=== PATIENT | female | born 1990 | race Caucasian/White ===

== ENCOUNTER → 2017-01-30 | Outpatient (CLI) | payer BC ==
[~2017-01-30] MED LIST: HYDR-4074 PO; ONDA4TAB4 PO
== END ==
LOC: LAB 15:14
PROVIDERS: ATTEND Obstetrics & Gynecology Reproductive Endocrinology
DX: Z32.00 Encounter for pregnancy test, result unknown (principal)
CPT/HCPCS: 36415; 84702

== ENCOUNTER 2017-03-26 18:01 | Emergency (ER) | payer BC ==
[~2017-03-26] VITALS: Ht 162.6 cm; Wt 67.2 kg
--- OUTSIDE RECORDS SUMMARY | 2017-03-26 18:04 | XMS REPORT ---
Author Author Patricio Mccallum Organization [employer] Address Unknown Phone Unavailable Care Team Providers Care Director Medical Surgical Name Role Phone Patricio Mccallum CP Unavailable Allergies No Known Allergies Problems Problem Type Condition Code Onset Dates Condition Status Problem Family history of lymphoma Z80.2 Active Problem Atypical mole L81.9 Active Problem Well adult exam Z00.00 Active Medications Medication Code System Code Instructions Start Date End Date Status Dosage Doxycycline Hyclate [facility] [address]-32 100 MG Orally Twice a day May 20, 2016 1 tablet Results No Known Results Summary Purpose [employer] Submission
--- OUTSIDE RECORDS SUMMARY | 2017-03-26 18:04 | XMS REPORT ---
Author Author Patricio Mccallum Organization [employer] Address Unknown Phone Unavailable Care Team Providers Care Drum Sander Name Role Phone Patricio Mccallum CP Unavailable Allergies, Adverse Reactions, Alerts Substance Reaction Event Type Hydrocodone-APAP nausea and vomiting Drug Allergy Problems Problem Type Condition Code Onset Dates Condition Status Problem Family history of lymphoma Z80.2 Active Problem Atypical mole L81.9 Active Problem Well adult exam Z00.00 Active Assessment Atypical mole L81.9 Active Assessment Well adult exam Z00.00 Active Assessment Family history of lymphoma Z80.2 Active Medications Medication Code System Code Instructions Start Date End Date Status Dosage [facility] [address] 28-0.8 MG Orally as directed Procedures Procedure Coding System Code Date COMP PROFILE CPT-4 34060 February 25, 2016 LIPID PROFILE CPT-4 92361 February 25, 2016 CBC CPT-4 59889 February 25, 2016 Mantoux Intradermal CPT-4 23218 February 25, 2016 URINALYSIS CPT-4 41873 February 25, 2016 MED SERNEW PT 1839 CPT-4 79800 February 25, 2016 Administration Fee 18yrs and up 1st injection CPT-4 28046 February 25, 2016 Vital Signs Date/Time: February 25, 2016 Blood Pressure Systolic 118 mm Hg Height 64 in Weight 151.6 lbs BMI 26.02 Index Oximetry 100 % Cardiac Monitoring Heart Rate 72 /min Blood Pressure Diastolic 78 mm Hg Results Name Result Date Reference Range Unit Abnormality Flag LIPID PROFILE ----HDL-DIRECT 54 00333427 45-65 MG/DL ----LDL-DIRECT 89 13185460 0-99 MG/DL ----CHOL/HDL 2.7 65349186 4.0-6.7 RATIO L ----CHOLESTEROL 144 84439017 50-200 MG/DL ----TRIGLYCERIDE 53 76992954 30-150 MG/DL Urinalysis ---- RBC 0 97486133 0-2/HPF hpf ----pH 6.5 55976712 5-8 ----NITRITES NEG 20160225 NEGATIVE ---- WBC 0-1 20160225 0-5/HPF hpf ----GLUCOSE NORM 20160225 NEG MG/DL ----SPEC GRAVITY 1.029 20160225 1.016-1.022 ----PROTEIN NEG 20160225 NEGATIVE ----BLOOD NEG 20160225 NEGATIVE ----MUCOUS 0 92867875 NONE/HPF hpf ----COLOR D.YEL 20160225 YELLOW-STRAW ----CRYSTALS 0 20396457 NONE/HPF hpf ----BACTERIA 0 20160225 NONE/HPF hpf ----LEUKOCYTES NEG 53881594 NEGATIVE ----SQUAMOUS EPITH FEW 38650249 FEW/HPF hpf ----CLARITY CLEAR 20160225 CLEAR ----BILIRUBIN NEG 20160225 NEGATIVE ----OTHER CASTS 0 20160225 NONE/LPF lpf ----KETONES NEG 20160225 NEGATIVE ----UROBILINOGEN NORM 20160225 0 - 1.0 MG/DL CBC ----MCV 81.3 81518865 81.0-96.0 FL ----HCT 41.6 49852596 36.0-46.0 % ----MCHC 33.2 22818266 32.0-35.0 G/DL ----MCH 27.0 24134183 27.0-33.0 PG ----EO# 0.4 44482213 0.0-0.2 X10^3/UL H ----PLT 360 88847608 130-400 X10^3 ----EO% 9.0 28634970 0.0-3.0 % H ----RDW 13.5 21567133 11.5-15.5 % ----MO# 0.3 98795389 0.1-0.6 X10^3/UL ----MO% 6.6 75105012 1.7-9.3 % ----LY# 1.3 69762741 1.2-3.4 X10^3/UL ----BA# 0.0 56764654 0.0-0.1 X10^3/UL ----BA% 0.4 04331380 0.0-1.0 % ----HGB 13.8 95307825 11.6-16.0 G/DL ----RBC 5.12 70616768 3.90-5.20 X10^6 ----MPV 9.3 63915188 8.9-12.7 FL ----WBC 4.7 69769543 4.0-10.0 X10^3/UL ----NE% 56.2 19539960 42.2-75.2 % ----NE# 2.6 50660896 1.4-6.5 X10^3/UL ----LY% 27.8 10644600 20.5-51.1 % COMPREHENSIVE CHEM PROFILE ----SODIUM 143 63142053 133-145 MMOL/L ----TOTAL BILI 0.57 55365902 0.00-1.00 MG/DL ----CHLORIDE 104 16693731 96-108 MMOL/L ----POTASSIUM 4.2 86047413 3.3-5.1 MMOL/L ----CALCIUM 9.2 66766500 8.7-10.3 MG/DL ----AST/SGOT 19 25899945 5-40 U/L ----CO2 26 59814398 23-31 MMOL/L ----TOTAL PROTEIN 7.3 84058945 5.9-8.4 G/DL ----eGFR If Am 121 97552076 >60 ml/min/1.73m^2 ----ALBUMIN 4.5 53992997 3.2-5.2 G/DL ----eGFR If Non Am 100 59598105 >60 ml/min/1.73m^2 ----BUN 12 49274712 6-20 MG/DL ----ALT/SGPT 8 61299698 5-40 U/L ----ALK PHOS 53 77765012 34-114 U/L ----CREATININE 0.7 40770952 0.4-1.1 MG/DL ----GLUCOSE 95 53922036 60-99 MG/DL ----GLOBULIN 2.8 43646492 2.0-4.4 G/DL Immunizations Vaccine Administration Date Mantoux Intradermal February 25, 2016 Summary Purpose [employer] Submission
--- OUTSIDE RECORDS SUMMARY | 2017-03-26 18:04 | XMS REPORT ---
Author Author Patricio Mccallum Organization [employer] Address Unknown Phone Unavailable Care Team Providers Care Melt Room Operator Name Role Phone Patricio Mccallum CP Unavailable Allergies No Known Allergies Problems Problem Type Condition Code Onset Dates Condition Status Problem Family history of lymphoma Z80.2 Active Problem Atypical mole L81.9 Active Problem Well adult exam Z00.00 Active Medications No Known Medications Results No Known Results Summary Purpose [employer] Submission
[2017-03-26 18:05] VITALS: TEMP 97.9; Ht 162.6 cm; Wt 67.2 kg
[2017-03-26] MEDS ORDERED: LETR2.5T4 PO (18:18)
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
[2017-03-26] MEDS ORDERED: FEXO180T94 PO (18:21)
[2017-03-26] MEDS ORDERED: HCG250DI SQ (18:21)
[2017-03-26] MEDS ORDERED: IBUP-1724 PO (18:21)
[2017-03-26] MEDS ORDERED: IBUP-1547 PO (18:46)
--- NOTE | 2017-03-26 19:00 | NUR ---
DISMISSAL INSTRUCTIONS DISMISSAL INSTRUCTIONS GIVEN TO PT. AND NO FURTHER QUESTIONS. RX. FOR IBUPROFEN GIVEN. ADVISED PT. TO TAKE 4 TABS OF THE OTC IBUPROFEN. PT. LEFT ED AMBULATORY USING CRUTCHES.
[2017-03-26 19:08] VITALS: BP 103/59; PULSE 69; RESP 18; O2SAT 99
--- NOTE | 2017-03-27 10:19 | DI ---
Indication: ITS.REASON: RIGHT ANKLE INJURY PROCEDURE: ANKLE RIGHT 3 VIEW: Encounter: Initial Comparison: None Findings: There is no acute fracture, dislocation or malalignment identified. Impression: No acute osseous abnormality. .
== END 2017-03-26 19:08 | disposition home or self-care (01) ==
LOC: ED 18:01
DX: S90.01XA Contusion of right ankle, initial encounter (principal); V86.69XA Passenger of other special all-terrain or other off-road motor vehicle injured in nontraffic accident, initial encounter; Y93.89 Activity, other specified; Y92.008 Other place in unspecified non-institutional (private) residence as the place of occurrence of the external cause; Y99.8 Other external cause status